=== PATIENT | male | born 1945 | race Caucasian/White ===

== ENCOUNTER 2016-06-22 11:32 | Emergency (ER) | payer OTHER ==
[~2016-06-22] VITALS: Ht 172.7 cm; Wt 102.2 kg
[~2016-06-22 11:32] MED LIST: ASPIRIN81 M2 PO; CELEBREX200 MG PO; CRESTOR10 MG PO; CRESTOR5 MG PO; DIAZEPAM5 MG PO; DOCUSATE SODIU100 MG PO; Ecotrin PO; GLUCOPHAGE1000 MG PO; HYOSCYAMINE0.375 M4 PO; KRILL OIL500 MG PO; LEVBID0.375 MG PO; LEVEMIR FL100 UNITS/ SC; LEVEMIR100 UNIT/1 SQ; LEVEMIR100 UNIT/2 SC; LEVOTHYROXINE50 MCG PO; LIDOCAINE700 MG TD; LISINOPRIL-HCT1 EAC3 PO; LISINOPRIL2.5 MG PO; LOW DOSE ASPIRI81 M2 PO; LYRICA100 MG PO; LYRICA75 MG PO; MILK OF MAGNESI10 ML PO; NOVOLOG MI100 UNIT/3 SQ; NOVOLOG MI100 UNIT/M PO; NOVOLOG PE100 UNITS/ SC; NOVOLOG100 UNIT/2 SQ; OXYCODONE HCL5 MG PO; OXYCODONE-ACET1 EACH PO; OXYCODONE-APAP1 EAC6 PO; PERCOCET 5/31 TABLET PO; POLYETHYLENE GL17 GM PO; PROTONIX40 MG PO; SYNTHROID50 MCG PO; SYNTHROID75 MCG PO; TIROSINT50 MCG PO; TRAZODONE HCL50 MG PO; TRICOR145 MG PO; VALIUM5 MG PO; VICTOZA 2-0.6 MG/0.1 SC; VICTOZA0.6 MG/0.1 SC; VICTOZA0.6 MG/0.2 SC; VITAMIN D35000 UNIT PO; VITAMIN D50000 UNI4 PO; [UNRECOGNIZED DRUG - OTHER]
[2016-06-22 12:41] LABS: EOSINOPHIL (%) 3.9 % (0-5); EOSINOPHIL COUNT 0.2 K/uL (0-0.3); HEMATOCRIT 46.5 % (38.0-50.0); IMMATURE GRANULOCYTE (%) 0.2 % (0.0-0.7); INSTRUMENT ABS NEUTROPHIL CT 3.1 K/uL; LYMPHOCYTE COUNT 1.7 K/uL (1.0-2.8); MCH 29.1 PG (29.0-34.0); MCHC 32.3 G/DL (30.0-36.0); MCV 90.1 FL (86-99); MEAN PLAT.VOLUME 10.6 uM^3 (9.0-12.4); MONOCYTE COUNT 0.6 K/uL (0-0.8); NEUTROPHIL (%) 54.8 % (45-76); NEUTROPHIL COUNT 3.1 K/uL (1.8-6.4); PLATELET COUNT 172 K/uL (156-360); RBC DIS.WIDTH-CV 13.2 % (11.8-14.6); RBC DIS.WIDTH-SD 43.6 % (39-53); RED BLOOD COUNT 5.16 M/uL (4.00-5.50); WHITE BLOOD COUNT 5.7 K/uL (4.1-10.2)
[2016-06-22 12:53] LABS: CHLORIDE 109 mEq/L (99-109); POTASSIUM 4.2 mEq/L (3.7-5.4); SODIUM 142 mEq/L (136-147)
[2016-06-22 12:56] LABS: GLUCOSE 92 mg/dL (70-99)
[2016-06-22 12:57] LABS: ANION GAP 12 MEQ/L (2-14); TOTAL BILIRUBIN 0.3 mg/dL (0.0-1.0)
[2016-06-22 12:59] LABS: ALKALINE PHOSPHATASE 37 IU/L (3-129); GFR ESTIMATE (CALCULATED) > 59 mL/min/
[2016-06-22 13:00] LABS: UREA NITROGEN (BUN) 17 mg/dL (9-23)
[2016-06-22 13:03] LABS: LIPASE 43 U/L (1.0-51.0)
[2016-06-22 13:45] LABS: ADD MIUA? NO; BILIRUBIN NEGATIVE; BLOOD NEGATIVE; COLOR YELLOW ((YELLOW)); GLUCOSE (STRIP) NEGATIVE; KETONES NEGATIVE; LEUKOCYTES NEGATIVE; NITRITE NEGATIVE; PROTEIN (STRIP) NEGATIVE; SPECIFIC GRAVITY 1.016 (1.000-1.030); UROBILINOGEN 0.2 MG/DL (0.2-1.0)
[2016-06-22 19:39] VITALS: BP 155/70
== END 2016-06-22 19:40 | disposition home or self-care (01) ==
LOC: EME → EDBD 11:32 → EME 11:32
PROVIDERS: Emergency Medicine
DX: K43.6 Other and unspecified ventral hernia with obstruction, without gangrene (principal); E11.9 Type 2 diabetes mellitus without complications; I10 Essential (primary) hypertension; Z88.6 Allergy status to analgesic agent
CPT/HCPCS: 74177; 80053; 81003; 83605; 83690; 85025; 99281; 99285; J2405; J3010; J7030

== ENCOUNTER 2016-07-24 07:29 | Day surgery (SDC) | payer OTHER ==
[~2016-07-24] VITALS: Ht 172.7 cm; Wt 107.0 kg
[~2016-07-24 07:29] MED LIST changes: +COLACE100 MG PO; +VITAMIN D31000 UNI2 PO; +ZESTRIL10 MG PO
[2016-07-24 07:58] LABS: POINT-OF-CARE METER ID UU14174212
[2016-07-24 08:25] VITALS: BP 164/79
[2016-07-24 12:07] LABS: POINT-OF-CARE METER ID UU13113675
[2016-07-24 16:15] VITALS: BP 129/67
[2016-07-24 16:45] LABS: POINT-OF-CARE METER ID UU14162508
[2016-07-24 20:15] VITALS: BP 166/77
[2016-07-24 21:27] LABS: POINT-OF-CARE METER ID UU14162508
[2016-07-24 23:08] VITALS: BP 135/64
[2016-07-25 03:20] VITALS: BP 175/79
[2016-07-25 06:55] VITALS: BP 146/77
[2016-07-25 11:15] VITALS: BP 175/80
[2016-07-25 11:27] LABS: POINT-OF-CARE METER ID UU14162508
[2016-07-25 16:15] LABS: POINT-OF-CARE METER ID UU14162508
[2016-07-25 16:32] VITALS: BP 156/76
[2016-07-25 19:11] VITALS: BP 175/83
[2016-07-25 23:14] VITALS: BP 134/83
[2016-07-26 03:00] VITALS: BP 149/71
[2016-07-26 07:01] LABS: POINT-OF-CARE METER ID UU14162508
[2016-07-26 08:15] VITALS: BP 161/74
[2016-07-26] MEDS ORDERED: COLACE100 MG PO (09:44)
[2016-07-26] MEDS ORDERED: DILAUDID2 MG PO (09:44)
== END 2016-07-26 11:09 | disposition home or self-care (01) ==
LOC: SDC → 2EASTP 11:55 → 2SOUTH 11:55 → 2EASTP 14:45 → SDC 15:55 → 2EASTP 07-26 11:09
PROVIDERS: Surgery
PROC: 0WUF4JZ Supplement Abdominal Wall with Synthetic Substitute, Percutaneous Endoscopic Approach (ICD-10-PCS; principal; 2016-07-24)
DX: K43.0 Incisional hernia with obstruction, without gangrene (principal); K66.0 Peritoneal adhesions (postprocedural) (postinfection); K21.9 Gastro-esophageal reflux disease without esophagitis; K22.70 Barrett's esophagus without dysplasia; I10 Essential (primary) hypertension; E11.9 Type 2 diabetes mellitus without complications; E03.9 Hypothyroidism, unspecified; Z87.891 Personal history of nicotine dependence; Z68.35 Body mass index [BMI] 35.0-35.9, adult; Z79.82 Long term (current) use of aspirin; Z79.84 Long term (current) use of oral hypoglycemic drugs; Z88.8 Allergy status to other drugs, medicaments and biological substances
CPT/HCPCS: 82948; C1781; G0378; J0131; J0330; J0690; J1200; J1815; J1885; J2270; J2405; J3010; J7030; J7120; S0020